=== PATIENT | male | born 1990 | race Caucasian/White ===

== ENCOUNTER 2021-05-13 19:41 | Emergency (ER) | payer OTHER ==
[~2021-05-13] VITALS: Ht 177.8 cm; Wt 108.0 kg
[2021-05-13 19:44] VITALS: BP 146/89
--- NOTE | 2021-05-13 20:02 | NUR ---
PT GIVEN URINE SPECIMEN CUP. PT IN LOBBY.
[2021-05-13] MEDS ORDERED: ONDA-188 PO (21:48)
[2021-05-13] MEDS: ONDANSETRON 4 MG ODT PO ONE (22:18)
[2021-05-13] MEDS: LORazepam 1 MG TAB PO ONE (22:18)
[2021-05-13 22:30] VITALS: BP 142/86
== END 2021-05-13 22:30 | disposition home or self-care (01) ==
LOC: MED 19:41
DX: F15.10 Other stimulant abuse, uncomplicated (principal); F41.9 Anxiety disorder, unspecified; R00.0 Tachycardia, unspecified; F17.210 Nicotine dependence, cigarettes, uncomplicated; Z71.6 Tobacco abuse counseling
CPT/HCPCS: 93005; 99283; Q0162

== ENCOUNTER 2022-11-15 15:28 | Emergency (ER) | payer OTHER ==
[~2022-11-15] VITALS: Ht 175.3 cm; Wt 113.4 kg
[~2022-11-15 15:28] MED LIST: ONDA-188 PO
[2022-11-15 16:11] VITALS: BP 139/71; PULSE 92; RESP 18; TEMP 97.8; O2SAT 98
[2022-11-15] MEDS ORDERED: IBUPROFEN 600 MG TAB PO ONE (16:40)
--- NOTE | 2022-11-15 16:45 | NUR ---
PATIENT WENT TO XRAY
[2022-11-15] MEDS ORDERED: IBUP-2213 PO (17:53)
--- NOTE | 2022-11-15 18:12 | NUR ---
FLAVIO WRAP X 1 TO R ANKLE. PT GIVEN CRUTCHES AND RETURNED SAFE DEMONSTRATION.
--- NOTE | 2022-11-15 18:18 | NUR ---
Patient discharged with v/s stable. Written and verbal after care instructions given and explained. Patient verbalized understanding. Ambulatory with CRUTCHES to home. All questions addressed prior to discharge. Advised to follow up with PMD.
== END 2022-11-15 18:49 | disposition home or self-care (01) ==
LOC: MED 15:28
DX: S93.401A Sprain of unspecified ligament of right ankle, initial encounter (principal); Z79.899 Other long term (current) drug therapy; X58.XXXA Exposure to other specified factors, initial encounter; Y93.89 Activity, other specified; Y92.89 Other specified places as the place of occurrence of the external cause; Y99.8 Other external cause status
CPT/HCPCS: 73610; 99283